=== PATIENT | female | born 1980 | race Caucasian/White ===

== ENCOUNTER 2021-06-02 05:23 | Day surgery (SDC) | payer BC ==
[2021-05-26 13:39] LABS: BASOPHILS % (AUTO) 0.7 % (0-1); EOSINOPHILS % (AUTO) 0.2 % (0-6); MEAN CORPUSCULAR HEMOGLOBIN 31.5 PG (27.0-31.0); MEAN CORPUSCULAR HGB CONC 33.8 g/dL (33.0-36.5); MEAN CORPUSCULAR VOLUME 93.3 FL (78-98); MEAN PLATELET VOLUME 8.7 FL (7.4-10.4); MONOCYTES # (AUTO) 0.4 X10'3 (0-0.9); MONOCYTES % (AUTO) 6.1 % (2-12); NEUTROPHILS # (AUTO) 4.2 X10'3 (1.8-7.7); PRE OP HEMATOCRIT 40.5 % (35.0-45.0); PRE OP HEMOGLOBIN 13.7 g/dL (12.0-16.0); PRE OP PLATELET COUNT 245 X10'3 (140-440); RED BLOOD COUNT 4.34 X10'6 (4.20-5.60); RED CELL DISTRIBUTION WIDTH 13.7 % (11.5-14.5)
[2021-05-26 13:52] LABS: ALBUMIN 4.1 G/DL (3.4-5.0); ALBUMIN/GLOBULIN RATIO 1.1 (1.1-1.5); ALKALINE PHOSPHATASE 69 IU/L (46-116); BLOOD UREA NITROGEN 9 MG/DL (7-18); BUN/CREATININE RATIO 10.2 (6.6-38.0); CHLORIDE 105 MMOL/L (99-107); CREATININE 0.88 MG/DL (0.40-0.90); PRE OP ALT 17 U/L (30-65); PRE OP ANION GAP 9 (8-16); PRE OP AST 13 U/L (10-37); PRE OP BILIRUB, TOTAL 0.3 MG/DL (0.0-1.0); PRE OP GLUCOSE 91 MG/DL (70-104); PRE OP POTASSIUM 4.1 MMOL/L (3.4-5.1); PRE OP SODIUM 141 MMOL/L (135-145); TOTAL CARBON DIOXIDE 26.6 MMOL/L (24-32); TOTAL PROTEIN 7.7 G/DL (6.4-8.2); eGFR 71 ML/MIN
[2021-05-26 14:30] LABS: HCG SERUM QL NEGATIVE
[~2021-06-02] VITALS: Ht 172.7 cm; Wt 73.4 kg
[2021-06-02] VITALS (7 sets, daily range): BP systolic 102–129; BP diastolic 49–79
[~2021-06-02 05:23] MED LIST: IBUP-24 PO; ringers solution, lacted 1,000 ML IV SCH
[2021-06-02] MEDS ORDERED: albuterol 2.5 MG/3 ML nebule NEB ONE (05:30)
[2021-06-02] MEDS ORDERED: famotidine 20mg tablet PO ONE (05:30)
[2021-06-02] MEDS ORDERED: ceFAZolin 2gm in dextrose, iso 50 ML IV ONE (05:30)
[2021-06-02] MEDS ORDERED: BUPIVAcaine/PF 2.5mg/ml (0.25%) 10ml vial ONE (06:42)
[2021-06-02] MEDS ORDERED: midazolam 1 mg/ML 2ml injection ONE (07:36)
[2021-06-02] MEDS ORDERED: fentaNYL/PF 50MCG/1 ML 2ML syringe ONE (07:36)
[2021-06-02] MEDS ORDERED: LIDOcaine 2% (20mg/ml) 5ml vial ONE (07:50)
[2021-06-02] MEDS ORDERED: propofol inj 20 ML IV ONE (07:50)
[2021-06-02] MEDS ORDERED: rocuronium 10mg/ml inj IV ONE (07:50)
[2021-06-02] MEDS ORDERED: dexamethasone sod phosphate 4mg/ml inj. ONE (07:50)
[2021-06-02] MEDS ORDERED: ondansetron/PF 4mg/2ml inj ONE (07:51)
[2021-06-02] MEDS ORDERED: ringers solution, lacted 1,000 ML IV SCH (08:10)
[2021-06-02] MEDS ORDERED: morphine 2 MG/ML inj. syringe IV PRN (08:10)
[2021-06-02] MEDS ORDERED: morphine 4 MG/ML inj SYRINge IV PRN (08:10)
[2021-06-02] MEDS ORDERED: ondansetron/PF 4mg/2ml inj IV PRN (08:10)
[2021-06-02] MEDS ORDERED: proCHLORperazine 10 MG/2 ml inj IV PRN (08:10)
[2021-06-02] MEDS ORDERED: meperidine/PF 25mg/ml syringe IV PRN ×2 (08:10)
[2021-06-02] MEDS ORDERED: ketorolac trometh. 30mg/ml inj. ONE (08:12)
--- NOTE | 2021-06-02 08:36 | NUR ---
Received from OR via , accompanied by Anesthesiologist DR WHITE and report given by Anesthesiolgist. AWAKENS TO VOICE. VITALS STABLE. DRESSINGS DI. ROULA PAIN. ABD SOFT.
[2021-06-02] MEDS: meperidine/PF 25mg/ml syringe IV PRN ×2 (08:48→09:21)
[2021-06-02] MEDS ORDERED: acetaminophen 1,000mg/100ml IV 100 ML IV ONE (09:00)
--- NOTE | 2021-06-02 09:36 | NUR ---
AWAKE AND ORIENTED. VITALS STABLE. DRESSINGS DI. STATES PAIN IMPROVING. HOME WITH HER SPOUSE AT THIS TIME.
== END 2021-06-02 09:36 | disposition home or self-care (01) ==
LOC: PAS 05:23
PROVIDERS: ATTEND Obstetrics & Gynecology
DX: Z30.2 Encounter for sterilization (principal); Z30.46 Encounter for surveillance of implantable subdermal contraceptive; F41.9 Anxiety disorder, unspecified; Z79.899 Other long term (current) drug therapy; Z98.890 Other specified postprocedural states; F17.210 Nicotine dependence, cigarettes, uncomplicated; Z72.89 Other problems related to lifestyle; Z20.822 Contact with and (suspected) exposure to COVID-19
CPT/HCPCS: 11982; 36415; 58670; 80053; 82948; 84703; 85025; J0131; J1100; J1885; J2001; J2175; J2250; J2405; J2704; J3010; J3490; J7120; U0003; U0005; Z7506; Z7508; Z7512; A4618; A6455; A7000